=== PATIENT | male | born 1940 | race Two or more races ===

== ENCOUNTER 2016-10-24 12:45 | Inpatient (IN) | payer MEDICARE, OTHER ==
[~2016-10-24] VITALS: Ht 162.6 cm; Wt 50.8 kg
[~2016-10-24 12:45] MED LIST: ASPIR 8181 MG ORAL; METOPROLOL SUCC25 MG ORAL; MULTIVITAMINS1 EAC2 ORAL; NOVOLOG100 UNIT/3 SUBQ; SIMVASTATIN20 MG ORAL; VITAMIN C500 M1 ORAL; VITAMIN D1000 UNI1 ORAL
[2016-10-24] MEDS ORDERED: metroNIDAZOLE 500mg 100 ML IV SCH (13:00)
[2016-10-24] MEDS ORDERED: Vancomycin 1 GM in NS 275 ML IV ONE (13:00)
[2016-10-24] MEDS ORDERED: NS 1000ml 1,900 ML IVLG ONE (13:00)
[2016-10-24] MEDS ORDERED: Cefepime HCl 1 GM in NS 55 ML IV SCH (13:00)
[2016-10-24] MEDS ORDERED: BENAZEPRIL HCL10 MG ORAL (13:06)
[2016-10-24] MEDS ORDERED: DONEPEZIL HCL5 MG ORAL (13:06)
[2016-10-24] MEDS ORDERED: OMEPRAZOLE10 M1 ORAL (13:08)
[2016-10-24] MEDS ORDERED: METOPROLOL SUCC25 MG ORAL (13:08)
[2016-10-24] MEDS ORDERED: Cefepime 1gm vial ONE (13:08)
[2016-10-24] MEDS ORDERED: FLOMAX0.4 MG ORAL (13:08)
[2016-10-24 13:21] LABS: APPEARANCE,URINE VERY CLOUDY; KETONES,URINE 1+ (NEGATIVE); LEUKOCYTE ESTERASE ,URINE 3+ (NEGATIVE); NITRITE,URINE POSITIVE (NEGATIVE); PH,URINE 8 (4.5-8.0); PROTEIN,URINE 3+ (NEGATIVE); UROBILINOGEN,URINE NORMAL MG/DL (0.0-1.0)
[2016-10-24 13:22] LABS: MEAN CORPUSCULAR HEMOGLOBIN 30.7 PG (27.0-31.0); MEAN CORPUSCULAR HGB CONC 32.3 G/DL (32.0-36.0); MEAN CORPUSCULAR VOLUME 95 FL (80-99); MEAN PLATELET VOLUME 7.1 FL (6.5-10.1); PLATELET COUNT 211 K/UL (150-450); RED BLOOD COUNT 5.06 M/UL (4.70-6.10); RED CELL DISTRIBUTION WIDTH 12.3 % (11.6-14.8)
[2016-10-24 13:28] LABS: INR 1.1 (0.9-1.1); PROTHROMBIN TIME 10.8 SEC (9.30-11.50)
[2016-10-24 13:34] LABS: ALANINE AMINOTRANSFERASE 27 U/L (3-41); ALBUMIN/GLOBULIN RATIO 0.9 (1.0-2.7); ANION GAP 16 (5-15); ASPARTATE AMINO TRANSFERASE 15 U/L (5-40); CALCIUM 9.1 mg/dL (8.6-10.2); CARBON DIOXIDE 27 mEQ/L (20-30); CHLORIDE 107 mEQ/L (98-107); HEMOLYSIS 5; LIPASE 24 U/L (< 60); POTASSIUM 3.9 mEQ/L (3.4-4.9); SODIUM 150 mEQ/L (135-145); TOTAL PROTEIN 6.8 g/dL (6.6-8.7)
[2016-10-24 13:36] LABS: REFLEX LACTIC ACID YES OR NO YES
[2016-10-24 13:37] LABS: TROPONIN I < 0.30 ng/mL (<=0.30)
[2016-10-24 13:41] VITALS: BP 150/71
[2016-10-24 13:48] LABS: RBC,URINE 20-30 /HPF (0 - 0); SQUAMOUS EPITHELIAL CELL,UR FEW /LPF (NONE/OCC); WBC,URINE TNTC /HPF (0 - 0)
[2016-10-24 13:49] LABS: BACTERIA,URINE MANY /HPF; TRIPLE PHOSPHATE CRYSTAL,UR MODERATE /LPF
--- NOTE | 2016-10-24 14:03 | Emergency Room Report ---
History of Present Illness General Chief Complaint: Altered Mental Status Source: Patient, EMS Present Illness HPI The patient presents with altered level of consciousness. The family states that he's been getting his medications. The patient denies any pain at this time. He does agree that he is thirsty. Denies any cough. The patient has a suprapubic catheter. EMS transported the patient and blood sugar was 364. See ROS = negative - though poor historian. Allergies: Coded Allergies: No Known Allergies (Unverified , 08/31/16) Patient History Past Medical History: see triage record Social History Narrative at home Reviewed Nursing Documentation: PMH: Agreed, PSxH: Agreed Nursing Documentation-PMH Past Medical History: No History, Except For Hx Cardiac Problems: Yes Hx Hypertension: Yes Hx Diabetes: Yes Hx Neurological Problems: Yes - Alzheimer's disease, Dementia Hx Cerebrovascular Accident: Yes Review of Systems All Other Systems: negative except mentioned in HPI - poor historian Physical Exam Vital Signs Date Time Temp Pulse Resp B/P Pulse Ox O2 Delivery O2 Flow Rate FiO2 10/24/16 12:38 97.0 81 14 123/77 98 Room Air Sp02 EP Interpretation: reviewed, normal General Appearance: no apparent distress, Chronically Ill Head: normocephalic Eyes: bilateral eye other ENT: dry mucus membranes Neck: full range of motion, supple Respiratory: chest non-tender, lungs clear, normal breath sounds Cardiovascular #1: regular rate, rhythm Cardiovascular #2: 2+ radial (R) Gastrointestinal: normal bowel sounds, non tender, soft, non-distended, other - suprapubic cath Genitourinary: no CVA tenderness Musculoskeletal: back normal, gait/station normal, normal range of motion Neurologic: sensory intact, oriented - x2 Psychiatric: mood/affect normal Skin: normal inspection, warm/dry Medical Decision Making Diagnostic Impression: Primary Impression: Sepsis due to urinary tract infection Additional Impressions: Hyperglycemia Hypernatremia Renal insufficiency ER Course Patient presents with ALOC and elevated glucose. DDx: DKA, electrolyte abnormality, hyperglycemia, sepsis, UTI amongst others. Exam against acute CVA. Appears dehydrated. Emergent treatment with IV hydration and repeated glucose checks. Needs to exclude AMI and monitor heart. Exam c/w UTI from suprapubic cath. Will treat with broad spectrum antibiotics. Labs with leukocytosis, renal insufficiency, UTI. Elevated glucose without evidence of DKA. Improving glucose with hydration. Hyperglycemia significant. NS will begin to correct. Clinically improved with treatment. Discussed with Dr. Quintanilla. Admit telemetry. Laboratory Tests Test 10/24/16 12:50 White Blood Count 14.0 K/UL (4.8-10.8) H Red Blood Count 5.06 M/UL (4.70-6.10) Hemoglobin 15.5 G/DL (14.2-18.0) Hematocrit 48.0 % (42.0-52.0) Mean Corpuscular Volume 95 FL (80-99) Mean Corpuscular Hemoglobin 30.7 PG (27.0-31.0) Mean Corpuscular Hemoglobin Concent 32.3 G/DL (32.0-36.0) Red Cell Distribution Width 12.3 % (11.6-14.8) Platelet Count 211 K/UL (150-450) Mean Platelet Volume 7.1 FL (6.5-10.1) Neutrophils (%) (Auto) % (45.0-75.0) Lymphocytes (%) (Auto) % (20.0-45.0) Monocytes (%) (Auto) % (1.0-10.0) Eosinophils (%) (Auto) % (0.0-3.0) Basophils (%) (Auto) % (0.0-2.0) Differential Total Cells Counted 100 Neutrophils % (Manual) 87 % (45-75) H Lymphocytes % (Manual) 8 % (20-45) L Monocytes % (Manual) 5 % (1-10) Eosinophils % (Manual) 0 % (0-3) Basophils % (Manual) 0 % (0-2) Band Neutrophils 0 % (0-8) Platelet Estimate Adequate Platelet Morphology Normal Red Blood Cell Morphology Normal Prothrombin Time 10.8 SEC (9.30-11.50) Prothrombin Time INR 1.1 (0.9-1.1) PTT 25 SEC (23-33) Urine Color Yellow Urine Appearance Very cloudy Urine pH 8 (4.5-8.0) Urine Specific [place] 1.010 (1.005-1.035) Urine Protein 3+ (NEGATIVE) H Urine Glucose (UA) 4+ (NEGATIVE) H Urine Ketones 1+ (NEGATIVE) H Urine Occult Blood 5+ (NEGATIVE) H Urine Nitrite Positive (NEGATIVE) H Urine Bilirubin Negative (NEGATIVE) Urine Urobilinogen Normal MG/DL (0.0-1.0) Urine Leukocyte Esterase 3+ (NEGATIVE) H Urine RBC 20-30 /HPF (0 - 0) H Urine WBC Tntc /HPF (0 - 0) H Urine Squamous Epithelial Cells Few /LPF (NONE/OCC) Urine Triple Phosphate Crystals Moderate /LPF (NONE) H Urine Bacteria Many /HPF (NONE) H Sodium Level 150 mEQ/L (135-145) H Potassium Level 3.9 mEQ/L (3.4-4.9) Chloride Level 107 mEQ/L (98-107) Carbon Dioxide Level 27 mEQ/L (20-30) Anion Gap 16 (5-15) H Blood Urea Nitrogen 41 mg/dL (7-23) H Creatinine 2.0 mg/dL (0.7-1.2) H Estimate Glomerular Filtration Rate mL/min (>60) Glucose Level 388 mg/dL (74-106) H Lactic Acid Level 2.10 mmol/L (0.66-2.22) Calcium Level 9.1 mg/dL (8.6-10.2) Total Bilirubin 0.7 mg/dL (0.0-1.2) Aspartate Amino Transferase (AST) 15 U/L (5-40) Alanine Aminotransferase (ALT) 27 U/L (3-41) Alkaline Phosphatase 94 U/L (40-129) Total Creatine Kinase 292 U/L (38-174) H Troponin I < 0.30 ng/mL (<=0.30) Pro-B-Type Natriuretic Peptide 606 pg/mL (0-450) H Total Protein 6.8 g/dL (6.6-8.7) Albumin 3.3 g/dL (3.5-5.2) L Globulin 3.5 g/dL Albumin/Globulin Ratio 0.9 (1.0-2.7) L Lipase 24 U/L (< 60) Microbiology Date/Time Source Procedure Growth Status 10/24/16 13:44 Nasal Nares Influenza Types A,B Antigen (NAZIA) - Final Complete EKG Diagnostic Results Rate: normal Rhythm: NSR ST Segments: no acute changes Rhythm Strip Diag. Results EP Interpretation: yes Rhythm: NSR, no PVC's, no ectopy Chest X-Ray Diagnostic Results EP Interpretation: Yes Findings: no consolidation, no effusion, no pneumothorax, other - atherosclerosis Number of Views: 1 Last Vital Signs Date Time Temp Pulse Resp B/P Pulse Ox O2 Delivery O2 Flow Rate FiO2 10/25/16 00:30 98.4 59 19 133/70 98 Room Air Status: improved Disposition: ADMITTED INPATIENT Condition: Serious Referrals: [facility],REFERR[facility] (PCP) Kraig Witt M.D. Oct 24, 2016 14:03
[2016-10-24] MEDS ORDERED: Vancomycin 1gm inj IVPB ONE (14:20)
[2016-10-24 14:33] LABS: BAND NEUTROPHILS % (MANUAL) 0 % (0-8); BASOPHILS % (MANUAL) 0 % (0-2); EOSINOPHILS % (MANUAL) 0 % (0-3); LYMPHOCYTES % (MANUAL) 8 % (20-45); NEUTROPHILS % (MANUAL) 87 % (45-75); PLATELET ESTIMATE ADEQUATE; PLATELET MORPHOLOGY NORMAL; TOTAL CELLS COUNTED 100
[2016-10-24 15:07] VITALS: BP 130/59
--- NOTE | 2016-10-24 15:12 | Diagnostic Imaging Report ---
Indication: Chest pain Technique: Single portable AP view of the chest. Findings: Comparison: None. Degenerative changes lower cervical spine. Old, healed fracture mid right clavicle. Aortic arch calcified and mildly elongated. Linear densities right lung base. Left lung clear. Extra pulmonary soft tissues, remainder of the cardiomediastinal silhouette, pulmonary vasculature, and pleural surfaces are unremarkable. IMPRESSION: Subsegmental atelectasis versus scarring right lung base Otherwise no evidence of acute cardiopulmonary disease Aortosclerosis and probable chronic hypertensive change Old right clavicle fracture Cervical degenerative spondylosis.
[2016-10-24 16:26] VITALS: BP 144/83
[2016-10-24] MEDS ORDERED: HUMALOG MI100 UNIT/3 (17:28)
[2016-10-24] MEDS ORDERED: SIMVASTATIN40 MG (17:28)
--- NOTE | 2016-10-24 17:56 | History & Physical ---
History and Physical History & Physicial dict UTI dehydration DM Dementia HTN HPLD IVF abx insulin may need placement SARINA FREEDMAN Oct 24, 2016 17:56
[2016-10-24 20:00] VITALS: BP 139/63
[2016-10-24] MEDS ORDERED: Levemir Flexpen SUBQ SCH (21:00)
[2016-10-24] MEDS ORDERED: Metoprolol 25mg tab ORAL SCH (21:00)
[2016-10-24] MEDS: cefTRIAXone 1 GM in D5W 55 ML IVPB SCH (21:34)
[2016-10-24] MEDS: Donepezil 5mg Tab ORAL SCH (21:35)
[2016-10-24] MEDS: NovoLOG Insulin Flexpen SUBQ SCH (21:45)
--- NOTE | 2016-10-24 21:58 | History and Physical Report ---
DATE OF ADMISSION: 10/24/2016 HISTORY OF PRESENT ILLNESS: The patient is a 76-year-old man who came to the hospital by paramedics from home. Apparently, the son said that he was more lethargic than usual. He is normally bedridden and does not respond verbally. He was evaluated in the emergency department and found to have some dehydration and azotemia as well as diabetes out of control, which the son also reported. He had a urinary tract infection and antibiotics were given after cultures were obtained. Admission was arranged. PAST MEDICAL HISTORY: Little information is available from his medications. It is evident that he has diabetes, hypertension, and hyperlipidemia. He has a history of stroke and Alzheimer's dementia. He has a suprapubic catheter for unknown reason. MEDICATIONS: Reviewed and reconciled. He is on insulin. ALLERGIES: None. REVIEW OF SYSTEMS: Cannot be obtained. PHYSICAL EXAMINATION: GENERAL: The patient is awake, but does not respond appropriately to verbal stimuli. VITAL SIGNS: Showed that the temperature is normal, heart rate and respirations are normal, blood pressure is normal to slightly elevated, and room air saturation is normal. HEENT: The head is normocephalic. He appears chronically ill. NECK: No jugular venous distention. He is drooling. CHEST: Clear. CARDIAC: Rhythm is regular. ABDOMEN: Soft and nontender. Suprapubic catheter is in place. EXTREMITIES: No clubbing, cyanosis, or edema. NEUROLOGIC: He seems to move all extremities. SKIN: Warm and dry. LABORATORY STUDIES: [place] [address], hemoglobin 15, and platelets are normal. Sodium 150, BUN 41, creatinine 2.0, and blood sugar 388. BNP 606. Albumin 3.3. Urinalysis shows many white cells and 20 to 30 red cells. IMPRESSION: 1. Urinary tract infection with indwelling suprapubic catheter. 2. Diabetes out of control. 3. Dehydration with azotemia. 4. Dementia Alzheimer's type. 5. Hypertension. 6. Hyperlipidemia. PLAN: The patient will be given intravenous fluids, antibiotics, and insulin as well as his routine medications. He may require placement in nursing facility seen the family is having difficulty caring for him. Cristobal Quintanilla M.D. DR: Lisa JOB#: [id number] CC: Cristobal Quintanilla M.D.; Fax#: [phone]
[2016-10-25] MEDS: 1/2NS w/KCl 20mEq 1000ml 1,000 ML IV SCH ×2 (00:19→10:20)
[2016-10-25 00:30] VITALS: BP 133/70
[2016-10-25 04:02] VITALS: BP 126/68
[2016-10-25] MEDS: NovoLOG Insulin Flexpen SUBQ SCH ×4 (06:30→21:00)
[2016-10-25 07:52] LABS: BASOPHILS % (AUTO) 0.6 % (0.0-2.0); EOSINOPHILS % (AUTO) 1.2 % (0.0-3.0); LYMPHOCYTES % (AUTO) 11.1 % (20.0-45.0); MEAN CORPUSCULAR HEMOGLOBIN 31.5 PG (27.0-31.0); MEAN CORPUSCULAR VOLUME 96 FL (80-99); MEAN PLATELET VOLUME 7.8 FL (6.5-10.1); MONOCYTES % (AUTO) 6.8 % (1.0-10.0); NEUTROPHILS % (AUTO) 80.4 % (45.0-75.0); PLATELET COUNT 166 K/UL (150-450); RED BLOOD COUNT 3.97 M/UL (4.70-6.10); RED CELL DISTRIBUTION WIDTH 11.9 % (11.6-14.8); WHITE BLOOD COUNT 9.4 K/UL (4.8-10.8)
[2016-10-25 07:53] LABS: ALANINE AMINOTRANSFERASE 20 U/L (3-41); ALBUMIN/GLOBULIN RATIO 0.8 (1.0-2.7); ANION GAP 14 (5-15); ASPARTATE AMINO TRANSFERASE 13 U/L (5-40); CALCIUM 8.2 mg/dL (8.6-10.2); CARBON DIOXIDE 25 mEQ/L (20-30); CHLORIDE 113 mEQ/L (98-107); CHOLESTEROL 113 mg/dL (< 200); CHOLESTEROL/HDL RATIO 3.5 (3.3-4.4); CREATININE 1.4 mg/dL (0.7-1.2); HEMOLYSIS 6; LDL CHOLESTEROL (CALC.) 55 mg/dL (60-99); POTASSIUM 3.2 mEQ/L (3.4-4.9); SODIUM 152 mEQ/L (135-145); TOTAL PROTEIN 5.6 g/dL (6.6-8.7)
[2016-10-25 08:14] VITALS: BP 128/72
[2016-10-25 08:14] LABS: HEMOGLOBIN A1C 9.3 % (< 6.0)
[2016-10-25] MEDS: Benazepril 10mg tab ORAL SCH (08:27)
[2016-10-25] MEDS: Aspirin Baby 81mg ORAL SCH (08:27)
[2016-10-25 11:55] VITALS: BP 127/57
--- NOTE | 2016-10-25 14:37 | Wound Care Consultation ---
Wound Assessment Wound Assessment : Wound Present on Admission: Yes New Wound: No Status Change of Wound: No Wound Location Body Site Modif: mid Wound Location Body Site: other - sacrococcygeal Wound Type: pressure ulcer Linsey Test: Does not Linsey Pressure Ulcer Stage: IV/unstageable Wound Thickness: Full Thickness Wound Length: 4.5 Wound Width: 3.0 Wound Depth: utd Percent of Wound [place]ral/Red: 20 Percent of Wound Bed Yellow/Wh: 40 Percent of Wound Black/Brown: 20 Wound Drainage Description: Serosanguineous Wound Drainage Amount: Scant Wound Drainage Odor: None/Absent Tissue Surrounding Wound: Macerated Wound Comment #1 Sacrococcygeal stage IV/unstageable pressure ulcer Recommendation -Cleanse with saline pat dry apply Therahoney gel to wound bed apply Triad cream to jersey wound area cover with [place] silicone drg daily and PRN soiled/ dislodged -Keep clean and dry -Turn and reposition -Optimize nutrition -Low air loss overlay mattress -Offload both heels -Assess and f/u accordingly for any changes VENANCIO CARMEN RN Oct 25, 2016 14:37
[2016-10-25 16:00] VITALS: BP 120/66
--- NOTE | 2016-10-25 16:42 | Pulmonology Progress Note ---
Assessment/Plan Assessment/Plan 1. Urinary tract infection with indwelling suprapubic catheter. 2. Diabetes out of control. 3. Dehydration with azotemia. 4. Dementia Alzheimer's type. 5. Hypertension. 6. Hyperlipidemia. more alert WBC down no fever BS better Na still high eats well Hgb down w hydration Subjective ROS Limited/Unobtainable: Yes Constitutional: Denies: fever Allergies: Coded Allergies: No Known Allergies (Unverified , 08/31/16) Objective Last 24 Hour Vital Signs Date Time Temp Pulse Resp B/P Pulse Ox O2 Delivery O2 Flow Rate FiO2 10/25/16 16:00 97.7 61 21 120/66 93 Room Air 10/25/16 12:00 54 10/25/16 11:55 97.0 60 20 127/57 98 Room Air 10/25/16 08:27 128/72 10/25/16 08:14 97.0 57 20 128/72 95 Room Air 10/25/16 08:00 59 10/25/16 04:02 98.5 68 20 126/68 98 Room Air 10/25/16 04:00 46 10/25/16 00:30 98.4 59 19 133/70 98 Room Air 10/25/16 00:00 56 10/24/16 21:34 75 139/63 10/24/16 20:00 73 10/24/16 20:00 98.0 75 20 139/63 96 Room Air Intake and Output 10/24/16 10/25/16 19:00 07:00 Intake Total 1055 ml 600 ml Output Total 300 ml 1300 ml Balance 755 ml -700 ml IV Total 1055 ml 600 ml Output Urine Total 300 ml 1300 ml # Bowel Movements 1 Objective suprapubic cath General Appearance: no acute distress Respiratory/Chest: lungs clear Cardiovascular: normal rate Abdomen: soft, non tender Neurologic/Psychiatric: motor weakness, aphasia Microbiology Date/Time Source Procedure Growth Status 10/24/16 13:44 Nasal Nares Influenza Types A,B Antigen (NAZIA) - Final Complete 10/24/16 12:47 Urine,Suprapubic Urine Culture - Preliminary Gram Negative Bacillus 1 Resulted Laboratory Tests 10/25/16 06:45: White Blood Count 9.4, Red Blood Count 3.97L, Hemoglobin 12.5L, Hematocrit 38.0L , Mean Corpuscular Volume 96, Mean Corpuscular Hemoglobin 31.5H, Mean Corpuscular Hemoglobin Concent 33.0, Red Cell Distribution Width 11.9, Platelet Count 166, Mean Platelet Volume 7.8, Neutrophils (%) (Auto) 80.4H, Lymphocytes ( %) (Auto) 11.1L, Monocytes (%) (Auto) 6.8, Eosinophils (%) (Auto) 1.2, Basophils (%) (Auto) 0.6, Sodium Level 152H, Potassium Level 3.2L, Chloride Level 113H, Carbon Dioxide Level 25, Anion Gap 14, Blood Urea Nitrogen 28H, Creatinine 1.4H, Estimat Glomerular Filtration Rate , Glucose Level 87#, Hemoglobin A1c 9.3H, Calcium Level 8.2L, Total Bilirubin 0.5, Aspartate Amino Transf (AST/SGOT) 13, Alanine Aminotransferase (ALT/SGPT) 20, Alkaline Phosphatase 70, Total Protein 5.6L, Albumin 2.6L, Globulin 3.0, Albumin/ Globulin Ratio 0.8L, Triglycerides Level 128, Cholesterol Level 113, LDL Cholesterol 55L, HDL Cholesterol 32, Cholesterol/HDL Ratio 3.5 Current Medications Medications (Trade) Dose Ordered Sig/David Route PRN Reason Start Time Stop Time Status Last Admin Dose Admin Aspirin (ASA) 81 mg DAILY ORAL 10/25/16 09:00 11/24/16 08:59 10/25/16 08:27 Atorvastatin Calcium (Lipitor) 10 mg BEDTIME ORAL 10/24/16 21:00 11/23/16 20:59 10/24/16 21:35 Benazepril HCl (Lotensin) 20 mg DAILY ORAL 10/25/16 09:00 11/24/16 08:59 10/25/16 08:27 Ceftriaxone Sodium/Dextrose (Rocephin/D5W) 55 ml @ 110 mls/hr Q24H IVPB 10/24/16 21:00 10/31/16 20:59 10/24/16 21:34 Dextrose STAT PRN IV Hypoglycemia 10/24/16 18:45 11/23/16 18:44 Donepezil HCl (Aricept) 5 mg QHS ORAL 10/24/16 21:00 11/23/16 20:59 10/24/16 21:35 Insulin Aspart (NovoLOG) BEFORE MEALS AND HS SUBQ 10/24/16 21:00 11/23/16 20:59 10/24/16 21:45 Insulin Detemir 12 units 12 units BEDTIME SUBQ 10/24/16 21:00 11/23/16 20:59 10/24/16 21:46 Pantoprazole (Protonix) 40 mg ACBREAKFAST ORAL 10/25/16 06:30 11/24/16 06:29 10/25/16 06:38 Sodium (0.45%NS w/KCl 20mEq 1000ml) 1,000 ml @ 100 mls/hr Q10H IV 10/25/16 00:00 11/24/16 00:00 10/25/16 10:20 SARINA FREEDMAN Oct 25, 2016 16:42
[2016-10-25] MEDS ORDERED: Pantoprazole Inj IVP ONE (18:30)
[2016-10-25] MEDS: D5 1/4NS w/KCl 20mEq 1,000 ML IV SCH (19:12)
[2016-10-25 20:00] VITALS: BP 136/71
[2016-10-25] MEDS ORDERED: Levemir Flexpen SUBQ SCH (21:00)
[2016-10-25] MEDS: cefTRIAXone 1 GM in D5W 55 ML IVPB SCH (22:31)
[2016-10-25] MEDS: Donepezil 5mg Tab ORAL SCH (22:31)
[2016-10-25] MEDS: Levemir Flexpen SUBQ SCH (22:34)
[2016-10-26] VITALS: BP 127/63
[2016-10-26 04:00] VITALS: BP 104/56
[2016-10-26] MEDS: D5 1/4NS w/KCl 20mEq 1,000 ML IV SCH ×3 (04:00→23:34)
[2016-10-26] MEDS: NovoLOG Insulin Flexpen SUBQ SCH ×4 (06:30→20:38)
[2016-10-26 07:30] LABS: BASOPHILS % (AUTO) 0.5 % (0.0-2.0); EOSINOPHILS % (AUTO) 2.3 % (0.0-3.0); LYMPHOCYTES % (AUTO) 20.6 % (20.0-45.0); MEAN CORPUSCULAR HEMOGLOBIN 31.3 PG (27.0-31.0); MEAN CORPUSCULAR HGB CONC 33.9 G/DL (32.0-36.0); MEAN CORPUSCULAR VOLUME 92 FL (80-99); MEAN PLATELET VOLUME 7.7 FL (6.5-10.1); MONOCYTES % (AUTO) 7.8 % (1.0-10.0); NEUTROPHILS % (AUTO) 68.7 % (45.0-75.0); PLATELET COUNT 156 K/UL (150-450); RED BLOOD COUNT 3.83 M/UL (4.70-6.10); RED CELL DISTRIBUTION WIDTH 11.6 % (11.6-14.8); WHITE BLOOD COUNT 6.3 K/UL (4.8-10.8)
[2016-10-26 07:52] LABS: ANION GAP 10 (5-15); CALCIUM 8.1 mg/dL (8.6-10.2); CARBON DIOXIDE 25 mEQ/L (20-30); CHLORIDE 112 mEQ/L (98-107); CREATININE 1.2 mg/dL (0.7-1.2); HEMOLYSIS 9; POTASSIUM 3.4 mEQ/L (3.4-4.9); SODIUM 147 mEQ/L (135-145)
[2016-10-26 08:00] VITALS: BP 125/52
[2016-10-26] MEDS: Aspirin Baby 81mg ORAL SCH (09:20)
[2016-10-26] MEDS: Benazepril 10mg tab ORAL SCH (09:21)
--- NOTE | 2016-10-26 11:03 | Diagnostic Imaging Report ---
APPROVED REPORT CPT Code: 89562 Present Symptoms Lower Extremity Pain: Shortness of breath BILATERAL: Imaging reveals a patent deep venous system bilaterally. There is no evidence of thrombus within the femoral, popliteal or tibial segments. The greater saphenous veins are also within normal limits. Doppler indicates normal spontaneous flow within these segments.
[2016-10-26 11:22] VITALS: BP 125/84
--- NOTE | 2016-10-26 14:35 | Pulmonology Progress Note ---
Assessment/Plan Assessment/Plan 1. Urinary tract infection with indwelling suprapubic catheter. 2. Diabetes out of control. 3. Dehydration with azotemia. 4. Dementia Alzheimer's type. 5. Hypertension. 6. Hyperlipidemia. WBC normal no fever BS better Na still high, better eats well Hgb down w hydration c/s with GNR x 2; one multisensitive, one pdg poss dc tomorrow to snf or home cont IVF Subjective ROS Limited/Unobtainable: Yes Constitutional: Reports: no symptoms Allergies: Coded Allergies: No Known Allergies (Unverified , 08/31/16) Objective Last 24 Hour Vital Signs Date Time Temp Pulse Resp B/P Pulse Ox O2 Delivery O2 Flow Rate FiO2 10/26/16 11:22 97.3 65 20 125/84 95 Room Air 10/26/16 09:21 125/52 10/26/16 08:00 57 10/26/16 08:00 97.5 64 20 125/52 96 Room Air 10/26/16 04:00 96.6 50 20 104/56 96 Room Air 10/26/16 04:00 52 10/26/16 00:00 53 10/26/16 00:00 97.0 53 20 127/63 96 Room Air 10/25/16 20:00 51 10/25/16 20:00 97.4 65 20 136/71 98 Room Air 10/25/16 18:11 97.7 10/25/16 16:00 64 10/25/16 16:00 97.7 61 21 120/66 93 Room Air Intake and Output 10/25/16 10/26/16 19:00 07:00 Intake Total 1040 ml 1000 ml Output Total 300 ml 1100 ml Balance 740 ml -100 ml Intake Oral 240 ml 200 ml IV Total 800 ml 800 ml Output Urine Total 300 ml 1100 ml # Bowel Movements 3 2 Objective suprapubic cath General Appearance: no acute distress HEENT: atraumatic Respiratory/Chest: lungs clear Cardiovascular: normal rate Abdomen: soft, non tender Microbiology Date/Time Source Procedure Growth Status 10/24/16 13:00 Blood Blood Culture - Preliminary NO GROWTH AFTER 24 HOURS Resulted 10/24/16 12:50 Blood Blood Culture - Preliminary NO GROWTH AFTER 24 HOURS Resulted 10/24/16 13:44 Nasal Nares Influenza Types A,B Antigen (NAZIA) - Final Complete 10/24/16 12:47 Urine,Suprapubic Urine Culture - Preliminary Proteus Mirabilis Gram Negative Bacillus 2 Resulted Laboratory Tests 10/26/16 05:15: White Blood Count 6.3, Red Blood Count 3.83L, Hemoglobin 12.0L, Hematocrit 35.4L , Mean Corpuscular Volume 92, Mean Corpuscular Hemoglobin 31.3H, Mean Corpuscular Hemoglobin Concent 33.9, Red Cell Distribution Width 11.6, Platelet Count 156, Mean Platelet Volume 7.7, Neutrophils (%) (Auto) 68.7, Lymphocytes (% ) (Auto) 20.6, Monocytes (%) (Auto) 7.8, Eosinophils (%) (Auto) 2.3, Basophils ( %) (Auto) 0.5, Sodium Level 147H, Potassium Level 3.4, Chloride Level 112H, Carbon Dioxide Level 25, Anion Gap 10, Blood Urea Nitrogen 21, Creatinine 1.2, Estimat Glomerular Filtration Rate , Glucose Level 109H, Calcium Level 8.1L Current Medications Medications (Trade) Dose Ordered Sig/David Route PRN Reason Start Time Stop Time Status Last Admin Dose Admin Acetaminophen (Tylenol) 650 mg Q4H PRN ORAL Mild Pain/Temp > 100.5 10/25/16 17:00 11/24/16 16:59 10/25/16 17:12 Aspirin (ASA) 81 mg DAILY ORAL 10/25/16 09:00 11/24/16 08:59 10/26/16 09:20 Atorvastatin Calcium (Lipitor) 10 mg BEDTIME ORAL 10/24/16 21:00 11/23/16 20:59 10/25/16 22:31 Benazepril HCl (Lotensin) 20 mg DAILY ORAL 10/25/16 09:00 11/24/16 08:59 10/26/16 09:21 Ceftriaxone Sodium/Dextrose (Rocephin/D5W) 55 ml @ 110 mls/hr Q24H IVPB 10/24/16 21:00 10/31/16 20:59 10/25/16 22:31 Dextrose STAT PRN IV Hypoglycemia 10/24/16 18:45 11/23/16 18:44 Dextrose/ Electrolytes (D5 0.25%NS w/ KCl 20mEq) 1,000 ml @ 100 mls/hr Q10H IV 10/25/16 18:00 11/24/16 17:59 10/26/16 12:10 Donepezil HCl 5 mg 5 mg QHS ORAL 10/24/16 21:00 11/23/16 20:59 10/25/16 22:31 Insulin Aspart (NovoLOG) BEFORE MEALS AND HS SUBQ 10/24/16 21:00 11/23/16 20:59 10/25/16 17:08 Insulin Detemir (Levemir) 8 units BEDTIME SUBQ 10/25/16 21:00 11/24/16 20:59 10/25/16 22:34 Pantoprazole (Protonix) 40 mg ACBREAKFAST ORAL 10/25/16 06:30 11/24/16 06:29 10/26/16 06:37 SARINA FREEDMAN Oct 26, 2016 14:35
[2016-10-26 16:00] VITALS: BP 123/75
[2016-10-26 20:00] VITALS: BP 126/71
[2016-10-26] MEDS: Donepezil 5mg Tab ORAL SCH (20:28)
[2016-10-26] MEDS: cefTRIAXone 1 GM in D5W 55 ML IVPB SCH (20:34)
[2016-10-26] MEDS: Levemir Flexpen SUBQ SCH (20:44)
[2016-10-27 00:15] VITALS: BP 124/61
--- NOTE | 2016-10-27 03:10 | Cardiology Report ---
APPROVED REPORT EKG Measurement Heart [id number] Normal sinus rhythm Inferior infarct, age undetermined Anteroseptal infarct, age undetermined Abnormal ECG
[2016-10-27 04:03] VITALS: BP 122/70
[2016-10-27] MEDS: NovoLOG Insulin Flexpen SUBQ SCH ×4 (06:45→22:59)
[2016-10-27 08:00] VITALS: BP 104/77
[2016-10-27] MEDS: Benazepril 10mg tab ORAL SCH (09:00)
[2016-10-27] MEDS: Aspirin Baby 81mg ORAL SCH (09:13)
[2016-10-27] MEDS: D5 1/4NS w/KCl 20mEq 1,000 ML IV SCH ×2 (09:17→22:55)
[2016-10-27 11:18] VITALS: BP 102/58
[2016-10-27 16:00] VITALS: BP 114/63
--- NOTE | 2016-10-27 19:48 | Pulmonology Progress Note ---
Assessment/Plan Assessment/Plan 1. Urinary tract infection with indwelling suprapubic catheter. 2. Diabetes out of control. 3. Dehydration with azotemia. 4. Dementia Alzheimer's type. 5. Hypertension. 6. Hyperlipidemia. WBC normal no fever BS better Na still high, better eats well Hgb down w hydration chagne abx to [facility] to dose poss dc tomorrow to snf or home cont IVF until dc Subjective ROS Limited/Unobtainable: Yes Allergies: Coded Allergies: No Known Allergies (Unverified , 08/31/16) Subjective sleepign this am no distress no fever less cough abx day 3, urine culture engative dip posistive has [place] Objective Last 24 Hour Vital Signs Date Time Temp Pulse Resp B/P Pulse Ox O2 Delivery O2 Flow Rate FiO2 10/27/16 16:00 98.1 80 21 114/63 96 Room Air 10/27/16 11:18 96.3 69 20 102/58 96 Room Air 10/27/16 09:00 104/77 10/27/16 08:00 96.1 70 20 104/77 96 Room Air 10/27/16 08:00 68 10/27/16 04:03 98.3 69 20 122/70 94 Room Air 10/27/16 04:00 61 10/27/16 00:15 98.3 78 19 124/61 94 Room Air 10/27/16 00:00 64 10/26/16 20:00 97.9 70 20 126/71 100 Room Air Intake and Output 10/26/16 10/27/16 19:00 07:00 Intake Total 670 ml 650 ml Output Total 850 ml 2400 ml Balance -180 ml -1750 ml Intake Oral 270 ml IV Total 400 ml 650 ml Output Urine Total 850 ml 2400 ml # Bowel Movements 4 1 HEENT: atraumatic Respiratory/Chest: lungs clear, normal breath sounds Abdomen: soft, non tender Skin: no lesions Neurologic/Psychiatric: disoriented Lymphatic: no groin adenopathy Current Medications Medications (Trade) Dose Ordered Sig/David Route PRN Reason Start Time Stop Time Status Last Admin Dose Admin Acetaminophen (Tylenol) 650 mg Q4H PRN ORAL Mild Pain/Temp > 100.5 10/25/16 17:00 11/24/16 16:59 10/25/16 17:12 Aspirin (ASA) 81 mg DAILY ORAL 10/25/16 09:00 11/24/16 08:59 10/27/16 09:13 Atorvastatin Calcium (Lipitor) 10 mg BEDTIME ORAL 10/24/16 21:00 11/23/16 20:59 10/26/16 20:28 Benazepril HCl (Lotensin) 20 mg DAILY ORAL 10/25/16 09:00 11/24/16 08:59 10/26/16 09:21 Ceftriaxone Sodium/Dextrose (Rocephin/D5W) 55 ml @ 110 mls/hr Q24H IVPB 10/24/16 21:00 10/31/16 20:59 10/26/16 20:34 Dextrose STAT PRN IV Hypoglycemia 10/24/16 18:45 11/23/16 18:44 Dextrose/ Electrolytes (D5 0.25%NS w/ KCl 20mEq) 1,000 ml @ 100 mls/hr Q10H IV 10/25/16 18:00 11/24/16 17:59 10/27/16 09:17 Donepezil HCl 5 mg 5 mg QHS ORAL 10/24/16 21:00 11/23/16 20:59 10/26/16 20:28 Insulin Aspart (NovoLOG) BEFORE MEALS AND HS SUBQ 10/24/16 21:00 11/23/16 20:59 10/27/16 17:24 Insulin Detemir (Levemir) 8 units BEDTIME SUBQ 10/25/16 21:00 11/24/16 20:59 10/26/16 20:44 Pantoprazole (Protonix) 40 mg ACBREAKFAST ORAL 10/25/16 06:30 11/24/16 06:29 10/27/16 06:14 Current Medications Medications (Trade) Dose Ordered Sig/David Route PRN Reason Start Time Stop Time Status Last Admin Dose Admin Acetaminophen (Tylenol) 650 mg Q4H PRN ORAL Mild Pain/Temp > 100.5 10/25/16 17:00 11/24/16 16:59 10/25/16 17:12 Aspirin (ASA) 81 mg DAILY ORAL 10/25/16 09:00 11/24/16 08:59 10/27/16 09:13 Atorvastatin Calcium (Lipitor) 10 mg BEDTIME ORAL 10/24/16 21:00 11/23/16 20:59 10/26/16 20:28 Benazepril HCl (Lotensin) 20 mg DAILY ORAL 10/25/16 09:00 11/24/16 08:59 10/26/16 09:21 Ceftriaxone Sodium/Dextrose (Rocephin/D5W) 55 ml @ 110 mls/hr Q24H IVPB 10/24/16 21:00 10/31/16 20:59 10/26/16 20:34 Dextrose STAT PRN IV Hypoglycemia 10/24/16 18:45 11/23/16 18:44 Dextrose/ Electrolytes (D5 0.25%NS w/ KCl 20mEq) 1,000 ml @ 100 mls/hr Q10H IV 10/25/16 18:00 11/24/16 17:59 10/27/16 09:17 Donepezil HCl 5 mg 5 mg QHS ORAL 10/24/16 21:00 11/23/16 20:59 10/26/16 20:28 Insulin Aspart (NovoLOG) BEFORE MEALS AND HS SUBQ 10/24/16 21:00 11/23/16 20:59 10/27/16 17:24 Insulin Detemir (Levemir) 8 units BEDTIME SUBQ 10/25/16 21:00 11/24/16 20:59 10/26/16 20:44 Pantoprazole (Protonix) 40 mg ACBREAKFAST ORAL 10/25/16 06:30 11/24/16 06:29 10/27/16 06:14 LINA BLUE DO Oct 27, 2016 19:48
[2016-10-27 20:00] VITALS: BP 105/60
[2016-10-27] MEDS: Donepezil 5mg Tab ORAL SCH (22:56)
[2016-10-27] MEDS: Levemir Flexpen SUBQ SCH (22:58)
[2016-10-28 00:04] VITALS: BP 108/74
[2016-10-28 04:08] VITALS: BP 116/78
[2016-10-28] MEDS: D5 1/4NS w/KCl 20mEq 1,000 ML IV SCH (06:00)
[2016-10-28] MEDS: NovoLOG Insulin Flexpen SUBQ SCH ×3 (06:30→17:32)
[2016-10-28 07:29] LABS: ANION GAP 11 (5-15); CALCIUM 8.3 mg/dL (8.6-10.2); CARBON DIOXIDE 26 mEQ/L (20-30); CHLORIDE 103 mEQ/L (98-107); CREATININE 1.3 mg/dL (0.7-1.2); HEMOLYSIS 7; POTASSIUM 4.7 mEQ/L (3.4-4.9); SODIUM 140 mEQ/L (135-145)
[2016-10-28 07:31] LABS: BASOPHILS % (AUTO) 0.5 % (0.0-2.0); EOSINOPHILS % (AUTO) 1.7 % (0.0-3.0); LYMPHOCYTES % (AUTO) 15.4 % (20.0-45.0); MEAN CORPUSCULAR HEMOGLOBIN 32.1 PG (27.0-31.0); MEAN CORPUSCULAR HGB CONC 35.3 G/DL (32.0-36.0); MEAN CORPUSCULAR VOLUME 91 FL (80-99); MEAN PLATELET VOLUME 7.6 FL (6.5-10.1); NEUTROPHILS % (AUTO) 75.3 % (45.0-75.0); PLATELET COUNT 156 K/UL (150-450); RED BLOOD COUNT 4.11 M/UL (4.70-6.10); RED CELL DISTRIBUTION WIDTH 11.4 % (11.6-14.8); WHITE BLOOD COUNT 8.8 K/UL (4.8-10.8)
[2016-10-28 07:42] VITALS: BP 126/93
[2016-10-28] MEDS: Aspirin Baby 81mg ORAL SCH (08:22)
[2016-10-28] MEDS: Benazepril 10mg tab ORAL SCH (08:23)
--- NOTE | 2016-10-28 11:16 | Discharge Summary ---
Discharge Summary Hospital Course Date of Admission Oct 24, 2016 at 14:36 Date of Discharge Admitting Diagnosis sepsis AMIRA Bruno is a 76 year old male who was admitted on Oct 24, 2016 at 14:36 for Sepsis Hospital Course #[id number] Discharge Discharge Disposition Patient was discharged to Home with Home Health(06) Discharge Diagnoses: LINA BLUE DO Oct 28, 2016 11:16
[2016-10-28 11:23] VITALS: BP 113/72
[2016-10-28 16:00] VITALS: BP 96/56
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
== END 2016-10-28 21:38 | disposition home health service (06) | DRG 689 ==
LOC: EDBD 12:45 → EMR 13:25 → 2E 14:36 → EDBEDREQ 14:59
DX: N39.0 Urinary tract infection, site not specified (principal); L89.154 Pressure ulcer of sacral region, stage 4; E11.65 Type 2 diabetes mellitus with hyperglycemia; E86.0 Dehydration; G30.9 Alzheimer's disease, unspecified; B96.4 Proteus (mirabilis) (morganii) as the cause of diseases classified elsewhere; Z43.5 Encounter for attention to cystostomy; F02.80 Dementia in other diseases classified elsewhere, unspecified severity, without behavioral disturbance, psychotic disturbance, mood disturbance, and anxiety; I10 Essential (primary) hypertension; E78.5 Hyperlipidemia, unspecified; B96.89 Other specified bacterial agents as the cause of diseases classified elsewhere
CPT/HCPCS: 36415; 71010; 80048; 80053; 80061; 81003; 82550; 82962; 83036; 83605; 83690; 83880; 84484; 85007; 85025; 85610; 85730; 86710; 87040; 87086; 87181; 93005; 93970; J1815; S5561

== ENCOUNTER 2016-11-19 22:02 | Inpatient (IN) | payer MEDICARE ==
[~2016-11-19] VITALS: Ht 165.1 cm; Wt 49.9 kg
[~2016-11-19 22:02] MED LIST changes: +BENAZEPRIL HCL10 MG ORAL; +DONEPEZIL HCL5 MG ORAL; +FLOMAX0.4 MG ORAL; +HUMALOG MI100 UNIT/3; +OMEPRAZOLE10 M1 ORAL; +SIMVASTATIN40 MG
[2016-11-19 22:05] VITALS: BP 134/85
[2016-11-19 23:21] LABS: BASOPHILS % (AUTO) 0.8 % (0.0-2.0); EOSINOPHILS % (AUTO) 0.1 % (0.0-3.0); LYMPHOCYTES % (AUTO) 9.5 % (20.0-45.0); MEAN CORPUSCULAR HEMOGLOBIN 31.4 PG (27.0-31.0); MEAN CORPUSCULAR HGB CONC 33.1 G/DL (32.0-36.0); MEAN CORPUSCULAR VOLUME 95 FL (80-99); MEAN PLATELET VOLUME 7.7 FL (6.5-10.1); MONOCYTES % (AUTO) 6.6 % (1.0-10.0); NEUTROPHILS % (AUTO) 83.1 % (45.0-75.0); PLATELET COUNT 184 K/UL (150-450); RED BLOOD COUNT 4.89 M/UL (4.70-6.10); WHITE BLOOD COUNT 11.2 K/UL (4.8-10.8)
[2016-11-19 23:29] VITALS: BP 134/73
[2016-11-19 23:32] LABS: ANION GAP 19 (5-15); CALCIUM 9.8 mg/dL (8.6-10.2); CARBON DIOXIDE 24 mEQ/L (20-30); CHLORIDE 97 mEQ/L (98-107); HEMOLYSIS 6; POTASSIUM 4.8 mEQ/L (3.4-4.9); SODIUM 140 mEQ/L (135-145)
[2016-11-20 00:43] LABS: KETONES,URINE 1+ (NEGATIVE); LEUKOCYTE ESTERASE ,URINE 2+ (NEGATIVE); NITRITE,URINE POSITIVE (NEGATIVE); PH,URINE 5 (4.5-8.0); PROTEIN,URINE 3+ (NEGATIVE); UROBILINOGEN,URINE NORMAL MG/DL (0.0-1.0)
[2016-11-20 00:57] LABS: APPEARANCE,URINE SLIGHTLY CLOUDY
[2016-11-20 00:59] LABS: BACTERIA,URINE FEW /HPF; RBC,URINE 15-20 /HPF (0 - 0)
[2016-11-20 01:00] LABS: URIC ACID CRYSTALS,URINE MANY /LPF
[2016-11-20] MEDS ORDERED: cefTRIAXone 1 GM in NS 55 ML IVPB ONE (01:00)
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
[2016-11-20 01:28] VITALS: BP 142/80
[2016-11-20] MEDS ORDERED: HUMALOG KW200 UNIT/1 SQ (02:11)
[2016-11-20] MEDS ORDERED: DOCUSATE SODIU100 MG ORAL (02:11)
[2016-11-20] MEDS ORDERED: DUREZOL5 M1 OP (02:11)
[2016-11-20] MEDS ORDERED: CEPHALEXIN500 M1 ORAL (02:11)
[2016-11-20] MEDS ORDERED: ILEVRO1.7 ML OP (02:11)
[2016-11-20] MEDS ORDERED: Acetaminophen 650 MG SUPP RECTAL PRN (02:30)
[2016-11-20] MEDS ORDERED: Milk of Magnesia 30ml Ud ORAL PRN (02:30)
[2016-11-20 04:00] VITALS: BP 153/64
[2016-11-20] MEDS ORDERED: Cephalexin 500mg cap ORAL SCH (06:00)
[2016-11-20] MEDS: NovoLOG Insulin Flexpen SUBQ SCH ×4 (06:09→22:11)
[2016-11-20 08:09] VITALS: BP 133/75
[2016-11-20] MEDS: Aspirin EC 81mg tab ORAL SCH (08:33)
[2016-11-20] MEDS: Donepezil 5mg Tab ORAL SCH (08:34)
[2016-11-20] MEDS: Ascorbic Acid 500mg tab ORAL SCH (08:34)
[2016-11-20] MEDS: Heparin 5000 units/ml inj SUBQ SCH ×2 (08:35→22:09)
[2016-11-20] MEDS ORDERED: Tamsulosin 0.4mg cap ORAL SCH (09:00)
[2016-11-20] MEDS: Vitamin D 1000 IU Tab ORAL SCH (10:05)
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
[2016-11-20 11:37] VITALS: BP 101/58
--- NOTE | 2016-11-20 14:25 | Wound Care Consultation ---
Wound Assessment Wound Assessment #1: Wound Number: #1 Wound Present on Admission: Yes New Wound: No Status Change of Wound: No Wound Location Body Site Modif: left Wound Location Body Site: metatarsal head - 5TH Wound Type: pressure ulcer Linsey Test: Does not Linsey Pressure Ulcer Stage: deep tissue injury - SUSPECTED Wound Thickness: Full Thickness Wound Length: 1.0 Wound Width: 1.0 Wound Depth: UTD Percent of Wound Dortches/Red: 50 Percent of Wound Purple/Maroon: 50 Wound Drainage Amount: None Wound Drainage Odor: None/Absent Tissue Surrounding Wound: Intact - ERYTHRMIC Wound General Appearance: Reddened, Clean/Dry Wound Assessment #2: Wound Number: #2 Wound Present on Admission: Yes New Wound: No Status Change of Wound: No Wound Location Body Site Modif: left Wound Location Body Site: trochanter - EXTENDING TO LEFT BUTTOCKS. Wound Type: pressure ulcer Linsey Test: Does not Linsey Pressure Ulcer Stage: deep tissue injury - SCATTERED Wound Thickness: Full Thickness Wound Length: 8.0 - SCATTERED Wound Width: 8.0 - SCATTERED. Wound Depth: UTD Percent of Wound Dortches/Red: 50 Percent of Wound Purple/Maroon: 50 Wound Drainage Amount: None Wound Drainage Odor: None/Absent Tissue Surrounding Wound: Intact - ERYTHEMIC Wound General Appearance: Reddened Wound Assessment #3: Wound Number: #3 Wound Present on Admission: Yes New Wound: No Status Change of Wound: No Wound Location Body Site Modif: mid Wound Location Body Site: sacral Wound Type: pressure ulcer Linsey Test: Does not Linsey Pressure Ulcer Stage: IV/unstageable Wound Thickness: Full Thickness Wound Length: 3.0 Wound Width: 2.5 Wound Depth: UTD Percent of Wound Dortches/Red: 5 Percent of Wound Bed Yellow/Wh: 95 Wound Drainage Description: Serosanguineous Wound Drainage Amount: Moderate Wound Drainage Odor: None/Absent Tissue Surrounding Wound: Macerated Wound General Appearance: Reddened, Draining, Necrotic Wound Assessment #4: Wound Number: #4 Wound Present on Admission: Yes New Wound: No Status Change of Wound: No Wound Location Body Site Modif: upper, posterior Wound Location Body Site: back Wound Type: pressure ulcer Linsey Test: Does not Linsey Pressure Ulcer Stage: deep tissue injury - SUSPECTED Wound Thickness: Full Thickness Wound Length: 1.0 Wound Width: 4.0 Wound Depth: UTD Percent of Wound Dortches/Red: 50 Percent of Wound Purple/Maroon: 50 Wound Drainage Amount: None Wound Drainage Odor: None/Absent Tissue Surrounding Wound: Intact Wound General Appearance: Reddened, Clean/Dry Wound Assessment #5: Wound Number: #5 Wound Present on Admission: Yes New Wound: No Status Change of Wound: No Wound Location Body Site Modif: right Wound Location Body Site: heel Wound Type: pressure ulcer Linsey Test: Does not Linsey Pressure Ulcer Stage: deep tissue injury Wound Thickness: Full Thickness Wound Length: 3.5 Wound Width: 3.5 Wound Depth: UTD Percent of Wound Purple/Maroon: 100 Wound Drainage Amount: None Wound Drainage Odor: None/Absent Tissue Surrounding Wound: Intact - BOGGY FEEL. Wound General Appearance: Reddened - MAROON. Wound Assessment #6: Wound Number: #6 Wound Present on Admission: Yes New Wound: No Status Change of Wound: No Wound Location Body Site Modif: right Wound Location Body Site: metatarsal head - 1ST. Wound Type: pressure ulcer Linsey Test: Does not Linsey Pressure Ulcer Stage: deep tissue injury - SUSPECTED Wound Thickness: Full Thickness Wound Length: 1.5 Wound Width: 1.5 Wound Depth: UTD Percent of Wound Dortches/Red: 50 Percent of Wound Purple/Maroon: 50 Wound Drainage Amount: None Wound Drainage Odor: None/Absent Tissue Surrounding Wound: Erythemic Wound General Appearance: Reddened Wound Assessment #7: Wound Number: #7 Wound Present on Admission: Yes New Wound: No Status Change of Wound: No Wound Location Body Site Modif: left Wound Location Body Site: malleolus/ankle Wound Type: pressure ulcer Linsey Test: Does not Linsey Pressure Ulcer Stage: deep tissue injury Wound Thickness: Full Thickness Wound Length: 2.0 Wound Width: 2.0 Wound Depth: UTD Percent of Wound Dortches/Red: 50 Percent of Wound Purple/Maroon: 50 Wound Drainage Amount: None Wound Drainage Odor: None/Absent Tissue Surrounding Wound: Erythemic Wound General Appearance: Reddened Wound Assessment #8: Wound Number: #8 Wound Present on Admission: Yes New Wound: No Status Change of Wound: No Wound Location Body Site Modif: left Wound Location Body Site: heel Wound Type: pressure ulcer Linsey Test: Does not Linsey Pressure Ulcer Stage: deep tissue injury - SUSPECTED Wound Thickness: Full Thickness Wound Length: 3.0 Wound Width: 3.0 Wound Depth: UTD Percent of Wound Dortches/Red: 50 Percent of Wound Purple/Maroon: 50 Wound Drainage Amount: None Wound Drainage Odor: None/Absent Tissue Surrounding Wound: Erythemic Wound General Appearance: Reddened Wound Assessment #9: Wound Number: #9 Wound Present on Admission: Yes New Wound: No Status Change of Wound: No Wound Location Body Site Modif: left Wound Location Body Site: arm Wound Type: scab - SCATTERED ECHYMOSIS. Linsey Test: Does not Linsey Wound Thickness: Full Thickness Wound Length: 2.0 Wound Width: 1.0 Wound Depth: UTD Percent of Wound Black/Brown: 100 - BLACK ADHERED SCAB. Wound Drainage Amount: None Wound Drainage Odor: None/Absent Tissue Surrounding Wound: Erythemic Wound General Appearance: Reddened Wound Assessment #10: Wound Number: #10 Wound Present on Admission: Yes New Wound: No Status Change of Wound: No Wound Location Body Site Modif: right, lower Wound Location Body Site: leg Wound Type: scab - SCATTERED BLACK SCABS Linsey Test: Does not Linsey Wound Thickness: Full Thickness Percent of Wound Black/Brown: 100 - SCATTERED Wound Drainage Amount: None Wound Drainage Odor: None/Absent Tissue Surrounding Wound: Erythemic Wound General Appearance: Reddened, Blackened Wound Assessment #11: Wound Number: #11 Wound Present on Admission: Yes New Wound: No Status Change of Wound: No Wound Location Body Site Modif: left, lower Wound Location Body Site: leg Wound Type: scab - SCATTERED SCABS Linsey Test: Does not Linsey Wound Thickness: Full Thickness Percent of Wound Black/Brown: 100 - SCATTERED Wound Drainage Amount: None Wound Drainage Odor: None/Absent Tissue Surrounding Wound: Erythemic Wound General Appearance: Reddened, Blackened Wound Comment #1 Left 5th metatarsal head suspected deep tissue injury. #2 Left trochanter extending to left buttocks scattered Deep tissue injury. #3 Sacral pressure ulcer stage IV/Unstageable. #4 Posterior upper back suspected deep tissue injury. #5 Right heel Deep tissue injury pressure ulcer. #6 Right 1st metatarsal head suspected deep tissue injury. #7 Left malleolus deep tissue injury. #8 Left heel suspected deep tissue injury. #9 Left arm scab with scattered ecchymosis. #10 Right lower extremity scattered black scabs. #11 Left lower extremity scattered black scabs. Recommendation. - APPLY LOW AIR LOSS OVERLAY MATTRESS FOR WOUND AND SKIN MANAGEMENT. -Local wound care as ordered. -Turn and reposition. -Keep clean and dry. -Optimize nutrition. -Offload heels/feet. -Offload sacral, trochanters, back. -Turn and reposition. -Assess and notify MD if any changes of condition are noted. HERMANN WALTER Nov 20, 2016 14:25
[2016-11-20 16:00] VITALS: BP 101/64
[2016-11-20 19:00] VITALS: BP 117/64
[2016-11-20] MEDS: Vitamin A&D Oint 2oz Tube TOPIC SCH (22:08)
[2016-11-21] VITALS: BP 131/68
[2016-11-21 04:00] VITALS: BP 121/76
[2016-11-21] MEDS: NovoLOG Insulin Flexpen SUBQ SCH ×4 (06:09→21:00)
[2016-11-21 06:48] LABS: EOSINOPHILS % (AUTO) 1.4 % (0.0-3.0); LYMPHOCYTES % (AUTO) 11.9 % (20.0-45.0); MEAN CORPUSCULAR HEMOGLOBIN 31.4 PG (27.0-31.0); MEAN CORPUSCULAR HGB CONC 33.7 G/DL (32.0-36.0); MEAN CORPUSCULAR VOLUME 93 FL (80-99); MEAN PLATELET VOLUME 7.5 FL (6.5-10.1); MONOCYTES % (AUTO) 7.2 % (1.0-10.0); NEUTROPHILS % (AUTO) 78.7 % (45.0-75.0); PLATELET COUNT 172 K/UL (150-450); RED BLOOD COUNT 4.18 M/UL (4.70-6.10); RED CELL DISTRIBUTION WIDTH 12.7 % (11.6-14.8)
[2016-11-21 07:08] LABS: ALANINE AMINOTRANSFERASE 13 U/L (3-41); ALBUMIN/GLOBULIN RATIO 0.8 (1.0-2.7); ANION GAP 14 (5-15); ASPARTATE AMINO TRANSFERASE 19 U/L (5-40); CALCIUM 8.5 mg/dL (8.6-10.2); CARBON DIOXIDE 24 mEQ/L (20-30); CHLORIDE 101 mEQ/L (98-107); CREATININE 1.3 mg/dL (0.7-1.2); HEMOLYSIS 1; POTASSIUM 4.2 mEQ/L (3.4-4.9); SODIUM 139 mEQ/L (135-145); TOTAL PROTEIN 5.9 g/dL (6.6-8.7)
[2016-11-21 08:12] VITALS: BP 109/77
[2016-11-21] MEDS: Aspirin EC 81mg tab ORAL SCH (09:15)
[2016-11-21] MEDS: Donepezil 5mg Tab ORAL SCH (09:15)
[2016-11-21] MEDS: Ascorbic Acid 500mg tab ORAL SCH (09:15)
[2016-11-21] MEDS: Vitamin D 1000 IU Tab ORAL SCH (09:15)
[2016-11-21] MEDS: Vitamin A&D Oint 2oz Tube TOPIC SCH ×2 (09:17→22:20)
[2016-11-21] MEDS: Heparin 5000 units/ml inj SUBQ SCH ×2 (09:17→22:21)
--- NOTE | 2016-11-21 12:02 | Diagnostic Imaging Report ---
Indication: Dyspnea Comparison: 10/24/16 A single view chest radiograph was obtained. Findings: There is volume loss with elevation of the left hemidiaphragm and ill-defined retrocardiac density. Findings are consistent with atelectasis. Superimposed pneumonia is also possible. Bones are osteopenic. Aorta is ectatic and calcified. Impression: Left basilar atelectasis. Superimposed pneumonia may be present also. Please correlate clinically
[2016-11-21 12:05] VITALS: BP 125/70
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
[2016-11-21] MEDS ORDERED: 1/2 NS 1000ml IV ONE ×2 (15:27→15:28)
[2016-11-21 16:00] VITALS: BP 133/75
[2016-11-21 19:00] VITALS: BP 135/66
[2016-11-22] VITALS: BP 120/71
[2016-11-22 04:00] VITALS: BP_SYST 106; BP_SYST 136; BP_DIAS 56; BP_DIAS 70
[2016-11-22] MEDS: NovoLOG Insulin Flexpen SUBQ SCH ×4 (06:16→21:35)
[2016-11-22 07:17] LABS: BASOPHILS % (AUTO) 0.5 % (0.0-2.0); EOSINOPHILS % (AUTO) 0.2 % (0.0-3.0); LYMPHOCYTES % (AUTO) 10.2 % (20.0-45.0); MEAN CORPUSCULAR HEMOGLOBIN 31.2 PG (27.0-31.0); MEAN CORPUSCULAR HGB CONC 34.2 G/DL (32.0-36.0); MEAN CORPUSCULAR VOLUME 91 FL (80-99); MEAN PLATELET VOLUME 8.2 FL (6.5-10.1); MONOCYTES % (AUTO) 5.1 % (1.0-10.0); PLATELET COUNT 171 K/UL (150-450); RED BLOOD COUNT 4.21 M/UL (4.70-6.10); RED CELL DISTRIBUTION WIDTH 11.9 % (11.6-14.8); WHITE BLOOD COUNT 9.5 K/UL (4.8-10.8)
[2016-11-22 07:44] LABS: ALANINE AMINOTRANSFERASE 12 U/L (3-41); ALBUMIN/GLOBULIN RATIO 0.9 (1.0-2.7); ANION GAP 17 (5-15); ASPARTATE AMINO TRANSFERASE 15 U/L (5-40); CALCIUM 8.7 mg/dL (8.6-10.2); CARBON DIOXIDE 23 mEQ/L (20-30); CHLORIDE 96 mEQ/L (98-107); CREATININE 1.2 mg/dL (0.7-1.2); HEMOLYSIS 5; POTASSIUM 3.5 mEQ/L (3.4-4.9); SODIUM 136 mEQ/L (135-145); TOTAL PROTEIN 5.7 g/dL (6.6-8.7)
[2016-11-22 08:15] VITALS: BP 123/68
[2016-11-22] MEDS: Vitamin D 1000 IU Tab ORAL SCH (08:44)
[2016-11-22] MEDS: Aspirin EC 81mg tab ORAL SCH (08:44)
[2016-11-22] MEDS: Vitamin A&D Oint 2oz Tube TOPIC SCH ×2 (08:44→21:33)
[2016-11-22] MEDS: Ascorbic Acid 500mg tab ORAL SCH (08:44)
[2016-11-22] MEDS: Donepezil 5mg Tab ORAL SCH (08:44)
[2016-11-22] MEDS: Heparin 5000 units/ml inj SUBQ SCH ×2 (08:46→21:36)
[2016-11-22 12:11] VITALS: BP 114/65
[2016-11-22 16:00] VITALS: BP 131/72
[2016-11-22 19:00] VITALS: BP 135/74
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
[2016-11-22 23:14] LABS: APPEARANCE,URINE CLEAR; KETONES,URINE 2+ (NEGATIVE); LEUKOCYTE ESTERASE ,URINE NEGATIVE (NEGATIVE); NITRITE,URINE NEGATIVE (NEGATIVE); PH,URINE 5 (4.5-8.0); PROTEIN,URINE 2+ (NEGATIVE); UROBILINOGEN,URINE NORMAL MG/DL (0.0-1.0)
[2016-11-22 23:28] LABS: BACTERIA,URINE FEW /HPF; RBC,URINE 0-2 /HPF (0 - 0); SQUAMOUS EPITHELIAL CELL,UR FEW /LPF (NONE/OCC); URIC ACID CRYSTALS,URINE MODERATE /LPF; WBC,URINE 0 /HPF (0 - 0)
--- NOTE | 2016-11-22 23:48 | General Progress Note ---
Assessment/Plan Assessment/Plan Assessment N/V, ? etiology - ? meds (Aricept0 - ? GERD - ? Gastroparesis - ? other Recommendations - decrease Aricept to 5 mg - zantac BID - Elevate HOB - check swallow Subjective Allergies: Coded Allergies: PENICILLINS (Verified Allergy, Unknown, Rash, 11/20/16) Objective Last 24 Hour Vital Signs Date Time Temp Pulse Resp B/P Pulse Ox O2 Delivery O2 Flow Rate FiO2 11/22/16 19:00 97.3 70 20 135/74 95 Room Air 11/22/16 16:00 96.8 68 20 131/72 99 Room Air 11/22/16 12:11 97.9 72 20 114/65 95 Room Air 11/22/16 08:15 98.8 69 21 123/68 94 Room Air 11/22/16 04:00 96.8 75 20 106/56 92 Room Air 11/22/16 00:00 96.4 89 20 120/71 92 Room Air Intake and Output 11/21/16 11/22/16 19:00 07:00 Intake Total 1230 ml 1057.5 ml Output Total 1600 ml 1200 ml Balance -370 ml -142.5 ml Intake Oral 480 ml 120 ml IV Total 750 ml 937.5 ml Output Urine Total 1600 ml 1200 ml # Bowel Movements 2 3 Laboratory Tests 11/22/16 05:30: White Blood Count 9.5, Red Blood Count 4.21L, Hemoglobin 13.1L, Hematocrit 38.4L , Mean Corpuscular Volume 91, Mean Corpuscular Hemoglobin 31.2H, Mean Corpuscular Hemoglobin Concent 34.2, Red Cell Distribution Width 11.9, Platelet Count 171, Mean Platelet Volume 8.2, Neutrophils (%) (Auto) 84.0H, Lymphocytes ( %) (Auto) 10.2L, Monocytes (%) (Auto) 5.1, Eosinophils (%) (Auto) 0.2, Basophils (%) (Auto) 0.5, Sodium Level 136, Potassium Level 3.5, Chloride Level 96L, Carbon Dioxide Level 23, Anion Gap 17H, Blood Urea Nitrogen 20, Creatinine 1.2, Estimat Glomerular Filtration Rate , Glucose Level 174H, Calcium Level 8.7 , Total Bilirubin 0.6, Aspartate Amino Transf (AST/SGOT) 15, Alanine Aminotransferase (ALT/SGPT) 12, Alkaline Phosphatase 73, Total Protein 5.7L, Albumin 2.8L, Globulin 2.9, Albumin/Globulin Ratio 0.9L 11/22/16 22:00: Urine Color Pale yellow, Urine Appearance Clear, Urine pH 5, Urine Specific [place] 1.015, Urine Protein 2+H, Urine Glucose (UA) 3+H, Urine Ketones 2+H, Urine Occult Blood 1+H, Urine Nitrite Negative, Urine Bilirubin Negative, Urine Urobilinogen Normal, Urine Leukocyte Esterase Negative, Urine RBC 0-2H, Urine WBC 0, Urine Squamous Epithelial Cells Few, Urine Uric Acid Crystals ModerateH, Urine Bacteria Few Height (Feet): 5 Height (Inches): 5.00 Weight (Pounds): 110 LATANYA ALLEN Nov 22, 2016 23:48
[2016-11-23] VITALS: BP 140/90
[2016-11-23 04:00] VITALS: BP 142/72
[2016-11-23] MEDS: NovoLOG Insulin Flexpen SUBQ SCH ×4 (06:44→21:17)
[2016-11-23 07:34] LABS: BASOPHILS % (AUTO) 0.6 % (0.0-2.0); EOSINOPHILS % (AUTO) 1.4 % (0.0-3.0); LYMPHOCYTES % (AUTO) 15.5 % (20.0-45.0); MEAN CORPUSCULAR VOLUME 91 FL (80-99); MEAN PLATELET VOLUME 7.8 FL (6.5-10.1); MONOCYTES % (AUTO) 5.8 % (1.0-10.0); NEUTROPHILS % (AUTO) 76.8 % (45.0-75.0); PLATELET COUNT 196 K/UL (150-450); RED CELL DISTRIBUTION WIDTH 11.9 % (11.6-14.8); WHITE BLOOD COUNT 5.9 K/UL (4.8-10.8)
[2016-11-23 07:45] LABS: ANION GAP 16 (5-15); CARBON DIOXIDE 24 mEQ/L (20-30); CHLORIDE 99 mEQ/L (98-107); CHOLESTEROL 153 mg/dL (< 200); CHOLESTEROL/HDL RATIO 4.1 (3.3-4.4); CREATININE 1.3 mg/dL (0.7-1.2); HEMOLYSIS 8; LDL CHOLESTEROL (CALC.) 91 mg/dL (60-99); POTASSIUM 3.5 mEQ/L (3.4-4.9); SODIUM 139 mEQ/L (135-145)
[2016-11-23 08:01] VITALS: BP 131/71
[2016-11-23 08:08] LABS: HEMOGLOBIN A1C 8.6 % (< 6.0)
[2016-11-23] MEDS: Ascorbic Acid 500mg tab ORAL SCH (08:26)
[2016-11-23] MEDS: Vitamin A&D Oint 2oz Tube TOPIC SCH ×2 (08:26→21:17)
[2016-11-23] MEDS: Aspirin EC 81mg tab ORAL SCH (08:27)
[2016-11-23] MEDS: Vitamin D 1000 IU Tab ORAL SCH (08:27)
[2016-11-23] MEDS: Heparin 5000 units/ml inj SUBQ SCH ×2 (08:29→21:16)
--- NOTE | 2016-11-23 08:48 | Consultation ---
DATE OF CONSULTATION: 11/22/2016 GASTROENTEROLOGY CONSULTATION CONSULTING PHYSICIAN: Kevin Okeefe M.D. CHIEF COMPLAINT: I was asked to see this patient by Dr. Cristobal Quintanilla for evaluation of nausea and vomiting. HISTORY OF PRESENT ILLNESS: The patient is an unfortunate 76-year-old man with some degree of dementia and cognitive dysfunction, who was brought in. He nausea and vomiting. The patient himself is a very poor historian and offers very little details. Most of the information is available from the chart. PAST MEDICAL HISTORY: History of diabetes, hypertension, hyperlipidemia, history of stroke, Alzheimer's dementia, history of . MEDICATIONS: See chart list for details. PHYSICAL EXAMINATION: GENERAL: The patient is a debilitated man, seen in his room. HEENT: Normocephalic and atraumatic. Sclerae anicteric. Oropharynx clear. NECK: Supple. CHEST: Clear to auscultation. CARDIOVASCULAR: Revealed a regular rate. ABDOMEN: Soft. Good bowel sounds. catheter is visible. EXTREMITIES: Revealed no edema. LABORATORY DATA: Noted. ASSESSMENT: This patient presents with nausea, vomiting, and failure to thrive and also he is confused. He is on Aricept. The patient has significant degree of periodic nausea and vomiting associated. This medication possibly help with vomiting. The patient will also be considered for treatment of gastroesophageal reflux and we are going to give a course of the Zantac empirically. Should his symptoms persist, an endoscopy for further evaluation can be considered. The patient worked up as an outpatient. RECOMMENDATIONS: Per above discussion and per orders written in the chart. Thank you for asking me to participate in the care of this patient. Kevin Okeefe M.D. DR: Patty JOB#: [id number] CC:
[2016-11-23] MEDS ORDERED: Donepezil 5mg Tab ORAL SCH (09:00)
[2016-11-23 11:58] VITALS: BP 131/61
[2016-11-23 16:00] VITALS: BP 140/81
[2016-11-23] MEDS ORDERED: RANITIDINE HCL150 MG ORAL (16:18)
[2016-11-23] MEDS ORDERED: NOVOLOG100 UNITS1 SUBQ (16:18)
--- NOTE | 2016-11-23 16:21 | Discharge Summary ---
Discharge Summary Hospital Course Date of Admission Nov 20, 2016 at 01:27 Date of Discharge 11/23/16 Admitting Diagnosis Failure to Thrive HPI Jatin Bruno is a 76 year old male who was admitted on Nov 20, 2016 at 01:27 for Failure To Thrive Consultations GI Procedures none Hospital Course dehydration resolved w IVF eating fairly well; occl emesis GI rec Zantac DC to SNF Discharge Medications New Medications: Insulin Aspart (Novolog Flexpen) 100 Unit/1 Ml Insuln.pen 0 UNITS SUBQ BEFORE MEALS AND HS, #1 EA Ranitidine Hcl* (Zantac*) 150 Mg Tablet 150 MG ORAL DAILY, #1 TAB Continued Medications: Benazepril Hcl* (Benazepril Hcl*) 10 Mg Tablet Unknown Dose ORAL DAILY, TAB Difluprednate (Durezol) 5 Ml Drops 0.05 % OP, ML Donepezil Hcl* (Donepezil Hcl*) 5 Mg Tablet Unknown Dose ORAL DAILY, TAB Nepafenac (Ilevro) 1.7 Ml Drops.susp 0.3 % OP Simvastatin (Zocor) 40 Mg Tablet #90 Tamsulosin HCl (Flomax) 0.4 Mg Cap.er.24h 0.4 MG ORAL DAILY, CAP Discontinued Medications: Aspirin* (Aspir 81*) 81 Mg Tablet.dr 81 MG ORAL DAILY, TAB Discharge Condition Upon Discharge: improving Discharge Disposition Patient was discharged to snf Discharge Diagnoses: (1) Dehydration (2) Hyperglycemia due to type 2 diabetes mellitus (3) Acute renal failure (ARF) (4) Suprapubic catheter dysfunction SARINA FREEDMAN Nov 23, 2016 16:21
[2016-11-23] MEDS ORDERED: 1/2 NS 1000ml IV ONE (18:59)
[2016-11-23 20:00] VITALS: BP 150/74
--- NOTE | 2016-11-23 20:18 | General Progress Note ---
Assessment/Plan Assessment/Plan Assessment N/V, ? etiology - resolved - ? Aricept - ? gastroenteritis Recommendations - Continue Aricept at 5 mg - zantac BID - Elevate HOB Subjective Allergies: Coded Allergies: PENICILLINS (Verified Allergy, Unknown, Rash, 11/20/16) Subjective eating well no N/V discussed with RN Objective Last 24 Hour Vital Signs Date Time Temp Pulse Resp B/P Pulse Ox O2 Delivery O2 Flow Rate FiO2 11/23/16 16:00 96.8 73 16 140/81 96 Room Air 11/23/16 11:58 98.9 73 22 131/61 99 Room Air 11/23/16 08:01 98.2 68 21 131/71 97 Room Air 11/23/16 04:00 96.8 69 20 142/72 97 Room Air 11/23/16 00:00 96.4 73 20 140/90 97 Nasal Cannula 2.0 Intake and Output 11/22/16 11/23/16 19:00 07:00 Intake Total 690 ml 1057.5 ml Output Total 800 ml 750 ml Balance -110 ml 307.5 ml Intake Oral 240 ml 120 ml IV Total 450 ml 937.5 ml Output Urine Total 800 ml 750 ml # Bowel Movements 4 1 Laboratory Tests 11/22/16 22:00: Urine Color Pale yellow, Urine Appearance Clear, Urine pH 5, Urine Specific [place] 1.015, Urine Protein 2+H, Urine Glucose (UA) 3+H, Urine Ketones 2+H, Urine Occult Blood 1+H, Urine Nitrite Negative, Urine Bilirubin Negative, Urine Urobilinogen Normal, Urine Leukocyte Esterase Negative, Urine RBC 0-2H, Urine WBC 0, Urine Squamous Epithelial Cells Few, Urine Uric Acid Crystals ModerateH, Urine Bacteria Few 11/23/16 06:15: White Blood Count 5.9, Red Blood Count 4.30L, Hemoglobin 13.4L, Hematocrit 39.3L , Mean Corpuscular Volume 91, Mean Corpuscular Hemoglobin 31.0, Mean Corpuscular Hemoglobin Concent 34.0, Red Cell Distribution Width 11.9, Platelet Count 196, Mean Platelet Volume 7.8, Neutrophils (%) (Auto) 76.8H, Lymphocytes ( %) (Auto) 15.5L, Monocytes (%) (Auto) 5.8, Eosinophils (%) (Auto) 1.4, Basophils (%) (Auto) 0.6, Sodium Level 139, Potassium Level 3.5, Chloride Level 99, Carbon Dioxide Level 24, Anion Gap 16H, Blood Urea Nitrogen 18, Creatinine 1.3H, Estimat Glomerular Filtration Rate , Glucose Level 127H, Hemoglobin A1c 8.6H, Calcium Level 9.0, Triglycerides Level 123, Cholesterol Level 153, LDL Cholesterol 91, HDL Cholesterol 37, Cholesterol/HDL Ratio 4.1 Height (Feet): 5 Height (Inches): 5.00 Weight (Pounds): 110 LATANYA ALLEN Nov 23, 2016 20:18
[2016-11-24 00:45] VITALS: BP 125/60
[2016-11-24] MEDS ORDERED: 1/2 NS 1000ml IV ONE (03:29)
--- NOTE | 2016-12-09 12:36 | Physician Query ---
PLEASE COMPLETE DOCUMENT BEFORE SIGNING Dear Dr. Quintanilla Date: 12/09/2016 Plant Maintenance Technician/CDS Name: Charleen Galvan CCS Exercise your independent professional judgment when responding to the query. Questions asked do not imply a particular answer is desired or expected. We greatly appreciate your clarification on this issue. CLINICAL DOCUMENTATION STATES: There is wound care nursing documentation in the chart of a ' sacral pressure ulcer, stage IV/unstageable", as well as mention of other possible pressure ulcers. Please respond to the following question: Is there a diagnosis specific to these symptoms or values? If so please state below. Please clarify the location of the ulcer: Location: Please specify the stage below: Stage I (pre-ulcer skin changes limited to persistent focal erythema) Stage II (abrasion, blister, and partial thickness skin loss) Stage III (full thickness skin loss with subcutaneous necrosis/damage) x Stage IV (necrosis of soft tissues through to underlying muscle, tendon, bone) Unstageable Unable to determine Condition Present on Admission: ( x ) Yes ( ) No ( ) unable to determine Please also document in your Progress Notes and/or Discharge Summary and indicate if the condition was present on admission. Cristobal Quintanilla M.D. Date & Time [facility]
--- NOTE | 2016-12-11 19:43 | Physician Query ---
Dear Dr. Quintanilla Date: 12/11/2016 [employer]/CDS Name: Charleen Galvan, TACOS Exercise your independent professional judgment when responding to the query. Questions asked do not imply a particular answer is desired or expected. We greatly appreciate your clarification on this issue. CLINICAL DOCUMENTATION STATES: There is wound care nursing documentation in the chart of a ' sacral pressure ulcer, stage IV/unstageable", as well as mention of other possible pressure ulcers. Please respond to the following question: Is there a diagnosis specific to these symptoms or values? If so please state below. Is the location of ulcer stated above correct? (x ) Yes, ( ) NO ( ) Unable to confirm Please also document in your Progress Notes and/or Discharge Summary and indicate if the condition was present on admission. Cristobal Quintanilla M.D. Date & Time [facility]
== END 2016-11-24 03:30 | DRG 640 ==
LOC: ENRESERVTM → ENRESERVDT → EDBD 22:02 → EMR 22:38 → 4E 11-20 01:27 → EDBEDREQ 11-20 02:16
DX: E86.0 Dehydration (principal); L89.154 Pressure ulcer of sacral region, stage 4; N17.9 Acute kidney failure, unspecified; T74.01XA Adult neglect or abandonment, confirmed, initial encounter; T83.9XXA Unspecified complication of genitourinary prosthetic device, implant and graft, initial encounter; E11.65 Type 2 diabetes mellitus with hyperglycemia; G30.9 Alzheimer's disease, unspecified; F02.80 Dementia in other diseases classified elsewhere, unspecified severity, without behavioral disturbance, psychotic disturbance, mood disturbance, and anxiety; I10 Essential (primary) hypertension; E78.5 Hyperlipidemia, unspecified; Z86.73 Personal history of transient ischemic attack (TIA), and cerebral infarction without residual deficits; Y84.6 Urinary catheterization as the cause of abnormal reaction of the patient, or of later complication, without mention of misadventure at the time of the procedure; Y92.009 Unspecified place in unspecified non-institutional (private) residence as the place of occurrence of the external cause; K21.9 Gastro-esophageal reflux disease without esophagitis; Y07.499 Other family member, perpetrator of maltreatment and neglect; Z88.0 Allergy status to penicillin; Z79.4 Long term (current) use of insulin; R62.7 Adult failure to thrive
CPT/HCPCS: 36415; 71010; 80048; 80053; 80061; 81001; 82962; 83036; 85025; 87070; 87081; 87086; 87181; 87205; 87324; J1815